=== PATIENT | male | born 1960 | race Two or more races ===

== ENCOUNTER → 2019-07-23 | Outpatient (CLI) | payer OTHER ==
--- NOTE | 2019-07-23 12:02 | RAD ---
Examination: ANKLE BILAT 2V History: Pain and crepitus Comparison/Correlation: None Findings: Frontal and lateral views of the right ankle were obtained. Frontal and lateral views of the left ankle were obtained. Joint spaces are unremarkable. Very small calcaneal spurs are suggested. No fracture or bony destruction. Soft tissues are unremarkable. Impression: No significant degenerative change. No suspicious process. Electronically signed by: Jerome Ramirez MD (07/23/2019 11:59 AM) [facility]
--- NOTE | 2019-07-23 13:56 | RAD ---
Examination: WRIST BILAT 2V History: Pain and crepitus upon movement Comparison/Correlation: None Findings: 2 view examination of the right wrist and 2 view examination left wrist was performed. 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 This may represent previous trauma or may be developmental. Distal radioulnar joint abnormalities present. Mild radiocarpal joint degenerative remodeling is noted. Deformity of the morphology of the lunate bone is present with capital lunate degenerative remodeling. Deformity of the right scaphoid bone is present and may relate to degenerative changes. Left wrist Narrowing of the capital lunate articulation with remodeling is notable. Mild radiocarpal joint narrowing is evident. Subchondral lucency involving the distal radius measuring up to 0.9 cm diameter and is of indeterminate significance. Impression: Degenerative changes of greater extent on the right. Degenerative findings are advanced for patient's age. 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 Correlate with trauma history. Indeterminate lucency at the distal left radius at the subchondral aspect. This may represent a subchondral geode although degenerative changes at the radiocarpal joint are relatively mild. Correlate clinically thin determining further evaluation. Electronically signed by: Jerome Ramirez MD (07/23/2019 1:53 PM) [facility]
== END | disposition home or self-care (01) ==
LOC: RAD 10:30
PROVIDERS: ATTEND Emergency Medicine
DX: Z02.71 Encounter for disability determination (principal); S52.611K Displaced fracture of right ulna styloid process, subsequent encounter for closed fracture with nonunion; M19.031 Primary osteoarthritis, right wrist; X58.XXXD Exposure to other specified factors, subsequent encounter
CPT/HCPCS: 73100; 73600